=== PATIENT | male | born 1980 | race African-American/Black ===

== ENCOUNTER 2020-10-08 00:15 | Emergency (ER) | payer BC ==
[~2020-10-08] VITALS: Ht 185.4 cm; Wt 90.3 kg
--- NOTE | 2020-10-08 01:36 | NUR ---
PT OK TO DISCHARGE PER DR BAIN. PT HAS GIRLFRIEND PICKING HIM UP. Patient discharged to home in stable condition. Written and verbal after care instructions given. Patient verbalizes understanding of instruction.Patient is awake and alert to self, day, and place. PT ambulatory with a steady gait
[2020-10-08 01:50] VITALS: BP 124/69
== END 2020-10-08 01:50 | disposition home or self-care (01) ==
LOC: ER 00:19
DX: T40.7X1A Poisoning by cannabis (derivatives), accidental (unintentional), initial encounter (principal); F60.0 Paranoid personality disorder; Z88.0 Allergy status to penicillin; Y92.89 Other specified places as the place of occurrence of the external cause

== ENCOUNTER 2022-08-10 20:55 | Emergency (ER) | payer BC ==
[~2022-08-10] VITALS: Ht 210.8 cm; Wt 99.8 kg
--- NOTE | 2022-08-10 22:05 | NUR ---
BIBFAMILY FROM HOME C/O THROAT DISCOMFORT "FEELS LIKE LETTUCE STUCK IN THROAT WITH DIFFICULTY BREATHING OR SWALLOWING. A/OX4, ABLE TO MAKE NEEDS KNOWN. VITALS CHECKED.
[2022-08-10] MEDS ORDERED: METOCLOPRAMIDE HCL 10 MG/2 ML VIAL ONE (22:24)
[2022-08-10] MEDS ORDERED: METOCLOPRAMIDE HCL 10 MG/2 ML VIAL IV ONE (22:30)
[2022-08-10] MEDS ORDERED: IV NS 0.9% 1,000 ML BAG IV ONE (22:30)
--- NOTE | 2022-08-10 22:30 | NUR ---
IV CANULA 20G INSERTED TO RT FA AND BLOOD DRAWN SENT TO LAB.
[2022-08-10 22:50] LABS: BASOPHILS % (AUTO) 0.3 % (0.0-2.0); EOSINOPHILS % (AUTO) 0.9 % (0.0-6.0); HEMATOCRIT 41 % (39-51); HEMOGLOBIN 13.2 g/dL (13.5-17.5); LYMPHOCYTES # (AUTO) 2.3 K/uL (0.8-4.8); LYMPHOCYTES % (AUTO) 27.5 % (20.0-44.0); MEAN CORPUSCULAR HGB CONC 32 g/dl (31.0-36.0); MEAN CORPUSCULAR VOLUME 84 fL (80-96); MONOCYTES # (AUTO) 0.5 K/uL (0.1-1.30); MONOCYTES % (AUTO) 6.3 % (2.0-12.0); NEUTROPHILS # (AUTO) 5.5 K/uL (1.8-8.9); PLATELET COUNT (AUTO) 220 K/uL (150-450); RED BLOOD CELL COUNT(AUTO) 4.93 MIL/uL (4.5-6.0); WHITE BLOOD COUNT (AUTO) 8.5 K/uL (4.3-11.0)
[2022-08-10] MEDS ORDERED: IV NS 0.9% 250 ML IV ONE (22:54)
[2022-08-10] MEDS ORDERED: IOHEXOL-300 100 ML VIAL IV ONE (22:54)
[2022-08-10] MEDS ORDERED: CT SWABBABLE VALVE TRANS SET 1 EA INFUS.SET MC ONE (22:54)
[2022-08-10 23:04] LABS: CALCIUM, SERUM 9.5 mg/dL (8.5-10.1); CREATININE 1.3 mg/dL (0.6-1.3); POTASSIUM 3.9 mmol/L (3.5-5.1)
[2022-08-11] MEDS ORDERED: GLUCAGON,HUMAN RECOMBINANT 1 MG/VIAL VIAL IV ONE (00:30)
[2022-08-11] MEDS ORDERED: MAG HYDROX/AL HYDROX/SIMETH 30 ML UDC PO ONE (00:30)
[2022-08-11] MEDS ORDERED: LIDOCAINE VISCOUS 2% UD 15 ML UDC MM ONE (00:30)
[2022-08-11] MEDS ORDERED: GLUCAGON,HUMAN RECOMBINANT 1 MG/VIAL VIAL ONE (00:31)
[2022-08-11] MEDS ORDERED: MAG HYDROX/AL HYDROX/SIMETH 30 ML UDC ONE (00:31)
[2022-08-11] MEDS ORDERED: LIDOCAINE VISCOUS 2% UD 15 ML UDC ONE (00:32)
--- NOTE | 2022-08-11 00:49 | NUR ---
Opal ceja in [facility] - 08/11/22 at 0049 by LEO AGUSTÍN MELENDREZ [id number]
[2022-08-11 02:28] VITALS: BP 143/83
--- NOTE | 2022-08-11 02:28 | NUR ---
IV CANULA REMOVE WITH CATHETHER INTACT.
--- NOTE | 2022-08-11 02:29 | NUR ---
Patient discharged to home in stable condition. Written and verbal after care instructions given. Patient verbalizes understanding of instruction.
== END 2022-08-11 02:29 | disposition home or self-care (01) ==
LOC: ER 21:04
DX: T18.128A Food in esophagus causing other injury, initial encounter (principal); M54.2 Cervicalgia; Z88.0 Allergy status to penicillin; Z88.1 Allergy status to other antibiotic agents; X58.XXXA Exposure to other specified factors, initial encounter; Y93.89 Activity, other specified; Y92.89 Other specified places as the place of occurrence of the external cause; Y99.8 Other external cause status
CPT/HCPCS: 99285; 96374; 70491; 96361; 85025; 80048; 36415; 96375; J2765; J7030; J7050; Q9967; J1610

== ENCOUNTER 2022-08-26 09:41 | Emergency (ER) | payer BC ==
[~2022-08-26] VITALS: Ht 185.4 cm; Wt 99.8 kg
[2022-08-26 10:29] LABS: CALCIUM, SERUM 9.6 mg/dL (8.5-10.1); CARBON DIOXIDE 28 mmol/L (21-32); CHLORIDE 104 mmol/L (98-107); CREATININE 1.2 mg/dL (0.6-1.3); GLUCOSE 117 mg/dL (74-106); POTASSIUM 3.7 mmol/L (3.5-5.1); SODIUM SERUM 139 mmol/L (136-145); UREA NITROGEN, BLOOD 10 mg/dL (7-18)
[2022-08-26] MEDS ORDERED: KETOROLAC TROMETHAMINE INJ 30 MG/ML VIAL IV ONE (10:30)
--- NOTE | 2022-08-26 10:30 | NUR ---
BIBA FOR RADIATING CHEST PAIN WITH PRESSURE SINCE THIS MORNING. A/O X 3, ABLE TO MAKE NEEDS KNOWN, TOLERATING WELL ON ROOM AIR.
[2022-08-26 10:35] LABS: ALANINE AMINOTRANSFERASE 21 U/L (12-78); ALBUMIN 3.8 g/dL (3.4-5.0); ALKALINE PHOSPHATASE 61 U/L (46-116); ASPARTATE AMINOTRANSFERASE 14 U/L (15-37); BILIRUBIN,TOTAL 0.1 mg/dL (0.2-1.0); TOTAL PROTEIN, SERUM 8.2 g/dL (6.4-8.2)
[2022-08-26] MEDS ORDERED: KETOROLAC TROMETHAMINE INJ 30 MG/ML VIAL ONE (10:46)
[2022-08-26 11:20] LABS: BASOPHILS % (AUTO) 0.7 % (0.0-2.0); EOSINOPHILS % (AUTO) 0.7 % (0.0-6.0); HEMATOCRIT 41 % (39-51); HEMOGLOBIN 13.4 g/dL (13.5-17.5); LYMPHOCYTES # (AUTO) 2.2 K/uL (0.8-4.8); LYMPHOCYTES % (AUTO) 32.2 % (20.0-44.0); MEAN CORPUSCULAR HGB CONC 32 g/dl (31.0-36.0); MEAN CORPUSCULAR VOLUME 83 fL (80-96); MONOCYTES # (AUTO) 0.4 K/uL (0.1-1.30); MONOCYTES % (AUTO) 5.9 % (2.0-12.0); NEUTROPHILS # (AUTO) 4.1 K/uL (1.8-8.9); NEUTROPHILS % (AUTO) 60.5 % (43.0-81.0); PLATELET COUNT (AUTO) 334 K/uL (150-450); RED BLOOD CELL COUNT(AUTO) 4.98 MIL/uL (4.5-6.0); WHITE BLOOD COUNT (AUTO) 6.9 K/uL (4.3-11.0)
[2022-08-26 11:54] VITALS: BP 132/76
== END 2022-08-26 11:57 | disposition home or self-care (01) ==
LOC: ER 09:42
DX: R07.9 Chest pain, unspecified (principal); Z88.0 Allergy status to penicillin
CPT/HCPCS: 99285; 96374; 71045; 93005; 85025; 80048; 80076; 36415; 84484; J1885

== ENCOUNTER 2023-06-22 22:58 | Emergency (ER) | payer BC ==
[~2023-06-22] VITALS: Ht 182.9 cm; Wt 101.6 kg
[~2023-06-22 22:58] MED LIST: LORA-259 PO
[2023-06-23 00:09] LABS: BASOPHILS # (AUTO) 0.1 K/uL (0.0-0.2); BASOPHILS % (AUTO) 0.7 % (0.0-2.0); EOSINOPHILS # (AUTO) 0.1 K/uL (0.0-0.7); EOSINOPHILS % (AUTO) 1.5 % (0.0-6.0); HEMATOCRIT 41 % (39-51); HEMOGLOBIN 13.3 g/dL (13.5-17.5); LYMPHOCYTES # (AUTO) 3.2 K/uL (0.8-4.8); MEAN CORPUSCULAR HEMOGLOBIN 27 PG (26.0-33.0); MEAN CORPUSCULAR HGB CONC 32 g/dl (31.0-36.0); MEAN CORPUSCULAR VOLUME 84 fL (80-96); MONOCYTES # (AUTO) 0.6 K/uL (0.1-1.30); MONOCYTES % (AUTO) 7.9 % (2.0-12.0); NEUTROPHILS # (AUTO) 3.5 K/uL (1.8-8.9); NEUTROPHILS % (AUTO) 46.9 % (43.0-81.0); PLATELET COUNT (AUTO) 245 K/uL (150-450); RED BLOOD CELL COUNT(AUTO) 4.93 MIL/uL (4.5-6.0); RED CELL DISTRIBUTION WIDTH 16.3 % (11.5-15.0); WHITE BLOOD COUNT (AUTO) 7.4 K/uL (4.3-11.0)
[2023-06-23 00:36] LABS: CALCIUM, SERUM 9.5 mg/dL (8.5-10.1); CREATININE 1.2 mg/dL (0.6-1.3); POTASSIUM 3.6 mmol/L (3.5-5.1)
[2023-06-23 00:49] LABS: ALBUMIN 3.7 g/dL (3.4-5.0); BILIRUBIN,TOTAL 0.3 mg/dL (0.2-1.0)
[2023-06-23 02:32] VITALS: BP 117/91; TEMP 98.9; O2SAT 98
== END 2023-06-23 02:32 | disposition home or self-care (01) ==
LOC: ER 23:03
DX: R07.89 Other chest pain (principal); Z79.899 Other long term (current) drug therapy; Z98.890 Other specified postprocedural states; Z88.0 Allergy status to penicillin; Z88.1 Allergy status to other antibiotic agents
CPT/HCPCS: 36415; 71045-TC; 80053-TC; 83880; 84484-TC; 85025-TC; 85378-TC

== ENCOUNTER 2023-11-14 18:43 | Emergency (ER) | payer BC ==
[~2023-11-14] VITALS: Ht 185.4 cm; Wt 104.3 kg
[2023-11-14] MEDS ORDERED: MORPHINE SULFATE INJ 4 MG/ML DISP.SYRIN ONE (20:30)
[2023-11-14] MEDS ORDERED: ONDANSETRON HCL/PF 4 MG/2 ML VIAL ONE (20:30)
[2023-11-14] MEDS: ONDANSETRON HCL/PF 4 MG/2 ML VIAL IVP ONE (20:31)
[2023-11-14] MEDS: IV NS 0.9% 1,000 ML BAG IV ONE (20:31)
[2023-11-14] MEDS: MORPHINE SULFATE INJ 2 MG/ML DISP.SYRIN IV ONE (20:31)
[2023-11-14 20:33] LABS: BASOPHILS % (AUTO) 0.6 % (0.0-2.0); EOSINOPHILS # (AUTO) 0.1 K/uL (0.0-0.7); HEMATOCRIT 44 % (39-51); HEMOGLOBIN 14.1 g/dL (13.5-17.5); LYMPHOCYTES # (AUTO) 2.5 K/uL (0.8-4.8); LYMPHOCYTES % (AUTO) 33.4 % (20.0-44.0); MEAN CORPUSCULAR HEMOGLOBIN 27 PG (26.0-33.0); MEAN CORPUSCULAR HGB CONC 32 g/dl (31.0-36.0); MEAN CORPUSCULAR VOLUME 83 fL (80-96); MONOCYTES # (AUTO) 0.6 K/uL (0.1-1.30); MONOCYTES % (AUTO) 7.4 % (2.0-12.0); NEUTROPHILS # (AUTO) 4.3 K/uL (1.8-8.9); NEUTROPHILS % (AUTO) 57.6 % (43.0-81.0); PLATELET COUNT (AUTO) 249 K/uL (150-450); RED BLOOD CELL COUNT(AUTO) 5.28 MIL/uL (4.5-6.0); RED CELL DISTRIBUTION WIDTH 16.5 % (11.5-15.0); WHITE BLOOD COUNT (AUTO) 7.4 K/uL (4.3-11.0)
[2023-11-14 21:12] LABS: CALCIUM, SERUM 9.7 mg/dL (8.5-10.1); CREATININE 1.1 mg/dL (0.6-1.3)
[2023-11-14 21:13] LABS: POTASSIUM 3.7 mmol/L (3.5-5.1)
[2023-11-14 21:18] LABS: ALBUMIN 4.3 g/dL (3.4-5.0); BILIRUBIN,DIRECT 0.1 mg/dL (0.0-0.2); BILIRUBIN,TOTAL 0.4 mg/dL (0.2-1.0); TOTAL PROTEIN, SERUM 8.8 g/dL (6.4-8.2)
[2023-11-14] MEDS ORDERED: CIPR-262 PO (21:43)
[2023-11-14] MEDS ORDERED: METH4TAB3 PO (21:43)
[2023-11-14] MEDS ORDERED: METR500T PO (21:43)
[2023-11-14 22:55] VITALS: BP 130/88; TEMP 98.7; O2SAT 98
== END 2023-11-14 22:55 | disposition home or self-care (01) ==
LOC: ER 18:46
DX: K50.90 Crohn's disease, unspecified, without complications (principal); E78.5 Hyperlipidemia, unspecified; Z79.899 Other long term (current) drug therapy; Z98.890 Other specified postprocedural states; Z88.0 Allergy status to penicillin; Z88.1 Allergy status to other antibiotic agents
CPT/HCPCS: 99285; 74176; 96374; 96361; 96375; 85025; 80048; 83690; 80076; 36415; J2270; J2405; J7030